=== PATIENT | female | born 1985 | race Caucasian/White ===

== ENCOUNTER 2016-09-29 12:01 | Emergency (ER) | payer OTHER ==
[~2016-09-29] VITALS: Wt 52.7 kg
[~2016-09-29 12:01] MED LIST: ACET1TAB40 PO; DOCU-144 PO; EPIN0.3P4 INJ; ESTR5VIA IM; IBUP-1542 PO; OXYC-279 PO; POLY17PO6 PO; PRED20TA PO
[2016-09-29] MEDS ORDERED: IBUPROFEN 800 MG TAB PO ONE (15:00)
[2016-09-29] MEDS ORDERED: NAPR-260 PO (15:24)
[2016-09-29 15:28] VITALS: BP 126/67; PULSE 78; RESP 21; TEMP 98.2
--- NOTE | 2016-09-29 15:29 | ERD ---
ER Documentation Chief Complaint Date/Time DATE: 09/29/16 TIME: 15:25 Chief Complaint RIGHT ARM PAIN FROM SHOULDER TO ELBOW NO TRAUMA. HPI This is a 30-year-old female who presents to the emergency department today complaining of right shoulder, right elbow, right wrist pain for the past 2 days. Patient states she has been moving homes and has been doing heavy lifting. She has tried Tylenol. Denies any fevers or chills or previous trauma. ROS All systems reviewed and are negative except as per history of present illness. Medications Home Meds Active Scripts Naproxen* (Naprosyn*) 500 Mg Tablet, 500 MG PO BID Y for PAIN AND/OR INFLAMMATION, #30 TAB Prov:ALEISHA RIVERO PA-C 09/29/16 Docusate Sodium* (Colace*) 100 Mg Capsule, 100 MG PO TID, #30 CAP Prov:MARTITA TAN PA-C 04/28/16 Polyethylene Glycol* (Miralax*) 17 Gm Powd.pack, 17 GM PO DAILY, #7 Prov:MARTITA TAN PA-C 04/28/16 Oxycodone HCl/Acetaminophen (Percocet 5-325 mg Tablet) 1 Each Tablet, 1 EACH PO QHS, #7 TAB Prov:MARTITA TAN PA-C 04/28/16 Ibuprofen* (Ibuprofen*) 600 Mg Tablet, 600 MG PO Q6H Y for PAIN, #30 TAB Prov:JOYCE SHEFFIELD PA-C 02/20/16 Prednisone* (Prednisone*) 20 Mg Tab, 60 MG PO DAILY for 4 Days, TAB Prov:PIO CHEN MD 02/08/16 Epinephrine (Epipen 2-Joshua) 0.3 Mg/0.3 Ml Pen.injctr, 1 EA INJ ONCE Y for ALLERGIC REACTION, #1 EA Prov:PIO CHEN MD 02/08/16 Acetaminophen-Codeine* (Acetaminophen-Cod #3*) 300-30 Mg Tab, 1 TAB PO Q4H Y for PAIN LEVEL 6-10, #15 TAB Prov:MARY JO FERNANDO 02/16/15 Ibuprofen* (Ibuprofen*) 600 Mg Tablet, 600 MG PO Q6 for PAIN LEVEL 1-5, #15 TAB Prov:MARY JO FERNANDO 02/16/15 Reported Medications Estradiol Cypionate* (Depo-Estradiol*) 5 Mg/Ml Vial, 5 MG IM, VIAL 07/08/14 Allergies Allergies: Coded Allergies: No Known Allergy (Unverified , 04/25/16) PMhx/Soc History of Surgery: Yes ( x2) Anesthesia Reaction: No Hx Neurological Disorder: No Hx Respiratory Disorders: No Hx Cardiac Disorders: No Hx Psychiatric Problems: No Hx Miscellaneous Medical Probl: No Hx Alcohol Use: No Hx Substance Use: No Hx Tobacco Use: No Smoking Status: Never smoker Physical Exam Vitals Vital Signs Date Time Temp Pulse Resp B/P Pulse Ox O2 Delivery O2 Flow Rate FiO2 09/29/16 12:07 98.8 92 21 120/74 99 Physical Exam Const: No acute distress Head: Atraumatic Eyes: Normal Conjunctiva ENT: Normal External Ears, Nose and Mouth. Neck: Full range of motion..~ No meningismus. Resp: Clear to auscultation bilaterally Cardio: Regular rate and rhythm, no murmurs Skin: No petechiae or rashes Back: No midline or flank tenderness MSK: Right shoulder, right elbow, right wrist with no obvious deformity. Full active range of motion at all joints.. Wrist with tenderness to palpation over volar aspect. Elbow with tenderness to palpation over medial epicondyle. Pulses 2+. Distal neurovascularly intact. Neur: Awake and alert Psych: Normal Mood and Affect Results 24 hrs Current Medications Medications (Trade) Dose Ordered Sig/Black Route PRN Reason Start Time Stop Time Status Last Admin Dose Admin Ibuprofen (Motrin) 800 mg ONCE ONCE PO 09/29/16 15:00 09/29/16 15:01 DC 09/29/16 14:39 Procedures/MDM This is a 30-year-old female who presents the emergency department today complaining of right shoulder right wrist and right elbow pain after doing heavy lifting for the past couple of days while moving her house. Patient has full active range of motion. There is no effusion. I have low suspicion for acute fracture dislocation. I do not feel the patient requires imaging at this time. Patient was driving herself here to the emergency department was given Motrin for pain. I will give her a prescription for Naprosyn for home. Patient is afebrile and otherwise well-appearing and I have low suspicion for septic joint or gout. Low suspicion for compartment syndrome. Patient was given a Velcro wrist splint to wear for comfort. I have instructed her to apply ice to painful areas. At this time the patient is stable for discharge and outpatient management. Patient should follow up with their PCP in the next 1-2 days. They may return to the emergency department sooner for any persistent or worsening of symptoms. Patient understood and agreed with the plan. Departure Diagnosis: Primary Impression: Pain of right arm Condition: Fair Patient Instructions: Muscle Strain, Extremity, Wrist Sprain Referrals: [facility] YOU HAVE RECEIVED A MEDICAL SCREENING EXAM AND THE RESULTS INDICATE THAT YOU DO NOT HAVE A CONDITION THAT REQUIRES URGENT TREATMENT IN THE EMERGENCY DEPARTMENT. FURTHER EVALUATION AND TREATMENT OF YOUR CONDITION CAN WAIT UNTIL YOU ARE SEEN IN YOUR DOCTORS OFFICE WITHIN THE NEXT 1-2 DAYS. IT IS YOUR RESPONSIBILITY TO MAKE AN APPOINTMENT FOR FOLOW-UP CARE. IF YOU HAVE A PRIMARY DOCTOR --you should call your primary doctor and schedule an appointment IF YOU DO NOT HAVE A PRIMARY DOCTOR YOU CAN CALL OUR PHYSICIAN REFERRAL HOTLINE AT IF YOU CAN NOT AFFORD TO SEE A PHYSICIAN YOU CAN CHOSE FROM THE FOLLOWING [facility] [address] [facility]. [facility] [address] [facility] [employer] [facility] [facility] [address] [facility]. [facility] [address] [facility] [facility] [address] [facility]. [facility]. [address] Additional Instructions: Call your primary care doctor TOMORROW for an appointment during the next 1-2 days.See the doctor sooner or return here if your condition worsens before your appointment time. Take Naprosyn or Tylenol or Motrin for pain Use a wrist splint for comfort Apply ice to painful areas Do not do any heavy lifting ALEISHA RIVERO PA-C Sep 29, 2016 15:29
== END 2016-09-29 15:29 | disposition home or self-care (01) ==
LOC: FTE 12:01
DX: S49.91XA Unspecified injury of right shoulder and upper arm, initial encounter (principal); X50.9XXA Other and unspecified overexertion or strenuous movements or postures, initial encounter; Y92.9 Unspecified place or not applicable
CPT/HCPCS: 29125; Z7502; Z7610

== ENCOUNTER 2016-11-13 14:35 | Emergency (ER) | payer OTHER ==
[~2016-11-13] VITALS: Ht 152.4 cm; Wt 56.0 kg
[~2016-11-13 14:35] MED LIST changes: +NAPR-260 PO
[2016-11-13 14:38] VITALS: Ht 152.4 cm; Wt 56.0 kg
[2016-11-13 15:41] LABS: URINE BLOOD (Dip) POC Negative (NEGATIVE)
[2016-11-13 15:45] LABS: ADD SCAN DIFF NO
--- NOTE | 2016-11-13 15:47 | RADRPT ---
PROCEDURE: US OB. CLINICAL INDICATION: pelvic pain TECHNIQUE: Transabdominal views of the pelvis are available for review. COMPARISON: No prior studies are available for comparison. FINDINGS: There is a single intrauterine gestation with the crown-rump length measuring 0.3 cm and the gestati onal sac measures 1.3 cm, corresponding to a gestational age of 6 weeks and 0 days. There is a yolk sac visualized. The heart rate is noted at 114 bpm. The ovaries are normal in size and echogenicity. Normal Doppler flow is identified in both ovaries. The right ovary measures 3.0 x 0.9 x 1.9 cm. The left ovary measures 4.0 x 2.6 x 3.3 cm. There is a 1.9 cm simple cyst in the left ovary. There is no free fluid. RPTAT: AA IMPRESSION: Single live intrauterine with an estimated gestational age of 6 weeks and 0 days, based on ultrasound measurements. MESFIN based on ultrasound measurements is 07/09/17. bradycardia may be due to the early gestation. Follow-up is needed. .Dago Castellanos MD, MD Date Time Electronically viewed and signed by .Dago Castellanos MD, MD on 11/13/2016 15:47 .S/
[2016-11-13 15:55] LABS: ADD UMIC NO
[2016-11-13 15:56] LABS: URINE BILIRUBIN (Dip) NEGATIVE (NEGATIVE); URINE BLOOD (Dip) NEGATIVE (NEGATIVE); URINE COLOR LT. YELLOW (YELLOW); URINE GLUCOSE (Dip) NEGATIVE (NEGATIVE); URINE KETONES (Dip) NEGATIVE (NEGATIVE); URINE LEUKOCYTE ESTERASE (Dip) NEGATIVE (NEGATIVE); URINE NITRITE (Dip) NEGATIVE (NEGATIVE); URINE TOTAL PROTEIN (Dip) NEGATIVE (NEGATIVE); URINE UROBILINOGEN (Dip) 0.2 E.U./dL (0.1-1.0)
[2016-11-13 15:58] LABS: BASOPHILS % 0.4 % (0.0-2.0); EOSINOPHILS # 0.2 10^3/ul (0.0-0.5); EOSINOPHILS % 1.9 % (0.0-7.0); HEMATOCRIT 39.3 % (37.0-47.0); HEMOGLOBIN 12.8 g/dl (12.0-16.0); LYMPHOCYTES # 2.2 10^3/ul (0.8-2.9); LYMPHOCYTES % 20.4 % (15.0-51.0); MEAN CORPUSCULAR HEMOGLOBIN 29.8 pg (29.0-33.0); MEAN CORPUSCULAR HGB CONC 32.6 g/dl (32.0-37.0); MEAN CORPUSCULAR VOLUME 91.4 fl (82.0-101.0); MEAN PLATELET VOLUME 9.9 fl (7.4-10.4); MONOCYTE # 0.8 10^3/ul (0.3-0.9); MONOCYTES % 7.8 % (0.0-11.0); NEUTROPHIL # 7.5 10^3/ul (1.6-7.5); NEUTROPHILS % 69.2 % (39.0-77.0); PLATELET COUNT 332 10^3/UL (140-415); RED CELL DISTRIBUTION WIDTH 12.9 % (11.5-14.5); WHITE BLOOD COUNT 10.8 10^3/ul (4.8-10.8)
[2016-11-13] MEDS ORDERED: ACETAMINOPHEN 325 MG TAB PO ONE (16:30)
[2016-11-13] MEDS ORDERED: ACET500C5 PO (17:02)
[2016-11-13] MEDS ORDERED: METO10TA92 PO (17:02)
--- NOTE | 2016-11-13 17:06 | ERD ---
ER Documentation Chief Complaint Date/Time DATE: 11/13/16 TIME: 17:04 Chief Complaint 5 WEEKS WITH ABD CRAMPING HPI This 22-year-old female is approximately 5 weeks by dates complaining of some lower abdominal cramping. She has bleeding, dysuria, fevers. She has had some vomiting since early , nonbilious nonbloody. ROS All systems reviewed and are negative except as per history of present illness. Medications Home Meds Active Scripts Acetaminophen* (Tylophen*) 500 Mg Capsule, 1 CAP PO Q6H Y for PAIN AND OR ELEVATED TEMP, #15 CAP Prov:JOCELYN JEFFRIES MD 11/13/16 Metoclopramide* (Reglan*) 10 Mg Tablet, 10 MG PO Q6 Y for NAUSEA AND/OR VOMITING , #15 TAB Prov:JOCELYN JEFFRIES MD 11/13/16 Naproxen* (Naprosyn*) 500 Mg Tablet, 500 MG PO BID Y for PAIN AND/OR INFLAMMATION, #30 TAB Prov:ALEISHA RIVERO PA-C 09/29/16 Docusate Sodium* (Colace*) 100 Mg Capsule, 100 MG PO TID, #30 CAP Prov:MARTITA TAN PA-C 04/28/16 Polyethylene Glycol* (Miralax*) 17 Gm Powd.pack, 17 GM PO DAILY, #7 Prov:MARTITA TAN PA-C 04/28/16 Oxycodone HCl/Acetaminophen (Percocet 5-325 mg Tablet) 1 Each Tablet, 1 EACH PO QHS, #7 TAB Prov:MARTITA TAN PA-C 04/28/16 Ibuprofen* (Ibuprofen*) 600 Mg Tablet, 600 MG PO Q6H Y for PAIN, #30 TAB Prov:JOYCE SHEFFIELD PA-C 02/20/16 Prednisone* (Prednisone*) 20 Mg Tab, 60 MG PO DAILY for 4 Days, TAB Prov:PIO CHEN MD 02/08/16 Epinephrine (Epipen 2-Joshua) 0.3 Mg/0.3 Ml Pen.injctr, 1 EA INJ ONCE Y for ALLERGIC REACTION, #1 EA Prov:PIO CHEN MD 02/08/16 Acetaminophen-Codeine* (Acetaminophen-Cod #3*) 300-30 Mg Tab, 1 TAB PO Q4H Y for PAIN LEVEL 6-10, #15 TAB Prov:MARY JO FERNANDO 02/16/15 Ibuprofen* (Ibuprofen*) 600 Mg Tablet, 600 MG PO Q6 for PAIN LEVEL 1-5, #15 TAB Prov:BELIA FERNANDOA 02/16/15 Reported Medications Estradiol Cypionate* (Depo-Estradiol*) 5 Mg/Ml Vial, 5 MG IM, VIAL 07/08/14 Allergies Allergies: Coded Allergies: No Known Allergy (Unverified , 04/25/16) PMhx/Soc History of Surgery: Yes ( x2) Anesthesia Reaction: No Hx Neurological Disorder: No Hx Respiratory Disorders: No Hx Cardiac Disorders: No Hx Psychiatric Problems: No Hx Miscellaneous Medical Probl: No (para 6, 3, misscarrage 1, abortionx1) Hx Alcohol Use: No Hx Substance Use: No Hx Tobacco Use: No Smoking Status: Never smoker Physical Exam Vitals Vital Signs Date Time Temp Pulse Resp B/P Pulse Ox O2 Delivery O2 Flow Rate FiO2 11/13/16 14:38 98.1 65 20 121/65 99 Physical Exam Const: [] Alert, not ill-appearing. Head: Atraumatic Eyes: Normal Conjunctiva ENT: Normal External Ears, Nose and Mouth. Neck: Full range of motion..~ No meningismus. Resp: Clear to auscultation bilaterally Cardio: Regular rate and rhythm, no murmurs Abd: Soft, minimal suprapubic tenderness without tenderness at McBurney's point no rebound or masses. R, non distended. Normal bowel sounds Skin: No petechiae or rashes Back: No midline or flank tenderness Ext: No cyanosis, or edema Neur: Awake and alert Psych: Normal Mood and Affect Result Diagram: 11/13/16 1530 Results 24 hrs Laboratory Tests Test 11/13/16 15:30 11/13/16 15:41 White Blood Count 10.810^3/ul Red Blood Count 4.3010^6/ul Hemoglobin 12.8g/dl Hematocrit 39.3% Mean Corpuscular Volume 91.4fl Mean Corpuscular Hemoglobin 29.8pg Mean Corpuscular Hemoglobin Concent 32.6g/dl Red Cell Distribution Width 12.9% Platelet Count 04595^3/UL Mean Platelet Volume 9.9fl Neutrophils % 69.2% Lymphocytes % 20.4% Monocytes % 7.8% Eosinophils % 1.9% Basophils % 0.4% Nucleated Red Blood Cells % 0.0/100WBC Neutrophils # 7.510^3/ul Lymphocytes # 2.210^3/ul Monocytes # 0.810^3/ul Eosinophils # 0.210^3/ul Basophils # 0.010^3/ul Nucleated Red Blood Cells # 0.010^3/ul Urine Color LT. YELLOW Urine Clarity CLEAR Urine pH 6.0 Urine Specific [facility] 1.010 Urine Ketones NEGATIVE Urine Nitrite NEGATIVE Urine Bilirubin NEGATIVE Urine Urobilinogen 0.2 E.U./dL Urine Leukocyte Esterase NEGATIVE Urine Hemoglobin NEGATIVE Urine Glucose NEGATIVE% Urine Total Protein NEGATIVE Beta HCG, Quantitative 30795.0mIU/ml Bedside Urine pH (LAB) 6.0 Bedside Urine Protein (LAB) Negative Bedside Urine Glucose (UA) Negative Bedside Urine Ketones (LAB) Negative Bedside Urine Blood Negative Bedside Urine Nitrite (LAB) Negative Bedside Urine Leukocyte Esterase (L Negative Current Medications Medications (Trade) Dose Ordered Sig/Black Route PRN Reason Start Time Stop Time Status Last Admin Dose Admin Acetaminophen (Tylenol Tab) 650 mg ONCE ONCE PO 11/13/16 16:30 11/13/16 16:31 DC 11/13/16 16:31 Procedures/MDM Urine is negative for leukocytes, nitrites, glucose, blood. HCG is 17,600. Patient is Rh+. Pelvic ultrasound shows a normal-appearing intrauterine approximately 6 weeks. Patient was given Tylenol 500 mg. Patient presents with lower abdominal cramping of uncertain etiology of early . Signs and symptoms not currently consistent with appendicitis, acute abdomen, ovarian torsion, ectopic or PID. She will discharged home instructions for clear fluids, Tylenol for pain and instructed to follow- up with OB as scheduled this week. She does return for bleeding, pain, fevers, new worsening symptoms with primary doctor as directed. Departure Diagnosis: Primary Impression: Abdominal pain affecting Condition: Stable Patient Instructions: Abdominal Pain, Early Additional Instructions: All examinations normal today. Drink plenty of fluids and take Tylenol for pain. Recheck for bleeding, fevers, new worsening symptoms. JOCELYN JEFFRIES MD Nov 13, 2016 17:06
== END 2016-11-13 17:32 | disposition home or self-care (01) ==
LOC: FTE 14:35
DX: O26.891 Other specified pregnancy related conditions, first trimester (principal); R10.9 Unspecified abdominal pain; R10.2 Pelvic and perineal pain
CPT/HCPCS: 76801; 81003; 84702; 85025; 86900; 86901; Z7502; Z7610

== ENCOUNTER 2017-01-25 10:44 | Emergency (ER) | payer OTHER ==
[~2017-01-25] VITALS: Ht 154.9 cm; Wt 55.0 kg
[~2017-01-25 10:44] MED LIST changes: +ACET500C5 PO; +METO10TA92 PO
[2017-01-25 10:45] VITALS: Ht 154.9 cm; Wt 55.0 kg
[2017-01-25 11:55] LABS: URINE BLOOD (Dip) POC Negative (NEGATIVE)
--- NOTE | 2017-01-25 12:27 | RADRPT ---
PROCEDURE: US OB. CLINICAL INDICATION: . Pelvic and abdominal pain. TECHNIQUE: Multiple sonographic images of the uterus were obtained. The images were revi ewed on a PACS workstation. COMPARISON: No prior studies are available for comparison. FINDINGS: There is a single live intrauterine gestation. heart rate is 144 beats per minute. Measurements were made in order to determine age. The results are as follows: BPD = 3.47 cm. HC = 12.86 cm. AC = 10.57 cm. FL = 2.14 cm. Estimated weight is 158 +/- 24 grams. LMP growth percentile is 54 %. Menstrual age by ultrasound dates is 16 weeks 4 days. The estimated date of delivery is 07/08/2017. Position is breech/variable and placenta is posterior grade 1. There is no evidence for an abruption or placenta previa. IMPRESSION: 1. Single live intrauterine gestation of 16 weeks 4 days menstrual age by ultrasound dates. 2. The estimated date of delivery is 07/08/2017. RPTAT: QQ .Riky Phipps MD, Date Time Electronically viewed and signed by .Riky Phipps MD, on 01/25/2017 12:27 .R/
--- NOTE | 2017-01-25 12:55 | ERD ---
ER Documentation Chief Complaint Date/Time DATE: 01/25/17 TIME: 12:53 Chief Complaint 16 weeks with ap, no bleeding HPI This 31-year-old female presents with generalized lower abdominal pain which is intermittent. She is approximately 16 weeks by dates. She denies any upper abdominal pain, fevers. She has had some intermittent vomiting but since the early . She has no current bilious or bloody vomiting. She denies urinary complaints or vaginal bleeding ROS All systems reviewed and are negative except as per history of present illness. Medications Home Meds Active Scripts Acetaminophen* (Tylophen*) 500 Mg Capsule, 1 CAP PO Q6H Y for PAIN AND OR ELEVATED TEMP, #15 CAP Prov:JOCELYN JEFFRIES MD 11/13/16 Metoclopramide* (Reglan*) 10 Mg Tablet, 10 MG PO Q6 Y for NAUSEA AND/OR VOMITING , #15 TAB Prov:JOCELYN JEFFRIES MD 11/13/16 Naproxen* (Naprosyn*) 500 Mg Tablet, 500 MG PO BID Y for PAIN AND/OR INFLAMMATION, #30 TAB Prov:ALEISHA RIVERO PA-C 09/29/16 Docusate Sodium* (Colace*) 100 Mg Capsule, 100 MG PO TID, #30 CAP Prov:MARTITA TAN PA-C 04/28/16 Polyethylene Glycol* (Miralax*) 17 Gm Powd.pack, 17 GM PO DAILY, #7 Prov:MARTITA TAN PA-C 04/28/16 Oxycodone HCl/Acetaminophen (Percocet 5-325 mg Tablet) 1 Each Tablet, 1 EACH PO QHS, #7 TAB Prov:MARTITA TAN PA-C 04/28/16 Ibuprofen* (Ibuprofen*) 600 Mg Tablet, 600 MG PO Q6H Y for PAIN, #30 TAB Prov:JOYCE SHEFFIELD PA-C 02/20/16 Prednisone* (Prednisone*) 20 Mg Tab, 60 MG PO DAILY for 4 Days, TAB Prov:PIO CHEN MD 02/08/16 Epinephrine (Epipen 2-Joshua) 0.3 Mg/0.3 Ml Pen.injctr, 1 EA INJ ONCE Y for ALLERGIC REACTION, #1 EA Prov:PIO CHEN MD 02/08/16 Acetaminophen-Codeine* (Acetaminophen-Cod #3*) 300-30 Mg Tab, 1 TAB PO Q4H Y for PAIN LEVEL 6-10, #15 TAB Prov:MARY JO FERNANDO 02/16/15 Ibuprofen* (Ibuprofen*) 600 Mg Tablet, 600 MG PO Q6 for PAIN LEVEL 1-5, #15 TAB Prov:MARY JO FERNANDO 02/16/15 Reported Medications Estradiol Cypionate* (Depo-Estradiol*) 5 Mg/Ml Vial, 5 MG IM, VIAL 07/08/14 Allergies Allergies: Coded Allergies: No Known Allergy (Unverified , 04/25/16) PMhx/Soc Medical and Surgical Hx: pt denies Medical Hx History of Surgery: Yes ( x2) Anesthesia Reaction: No Hx Neurological Disorder: No Hx Respiratory Disorders: No Hx Cardiac Disorders: No Hx Psychiatric Problems: No Hx Miscellaneous Medical Probl: No (para 6, 3, misscarrage 1, abortionx1) Hx Alcohol Use: No Hx Substance Use: No Hx Tobacco Use: No Smoking Status: Never smoker Physical Exam Vitals Vital Signs Date Time Temp Pulse Resp B/P Pulse Ox O2 Delivery O2 Flow Rate FiO2 01/25/17 10:45 98.1 99 18 116/60 99 Physical Exam Const: [] Alert, fee-see-fgoujbwne per Head: Atraumatic Eyes: Normal Conjunctiva ENT: Normal External Ears, Nose and Mouth. Neck: Full range of motion..~ No meningismus. Resp: Clear to auscultation bilaterally Cardio: Regular rate and rhythm, no murmurs Abd: Soft, non tender, non distended. Normal bowel sounds. Mass consistent with a second trimester . No tenderness at McBurney's point no Knapp sign. Skin: No petechiae or rashes Back: No midline or flank tenderness Ext: No cyanosis, or edema Neur: Awake and alert Psych: Normal Mood and Affect Results 24 hrs Laboratory Tests Test 01/25/17 12:00 Bedside Urine pH (LAB) 6.5 Bedside Urine Protein (LAB) Negative Bedside Urine Glucose (UA) Negative Bedside Urine Ketones (LAB) Negative Bedside Urine Blood Negative Bedside Urine Nitrite (LAB) Negative Bedside Urine Leukocyte Esterase (L Negative Procedures/MDM Urine is negative for infection, glucose, blood or nitrites. OB ultrasound shows normal-appearing 16 week without acute findings. Patient presents with unspecified mild lower abdominal pain of second trimester . There is no signs or symptoms of ectopic , bleeding, acute abdomen, appendicitis, hepatobiliary disease additional causes of presenting complaints. She will be discharged home with further observation and OB follow- up. She is advised to drink plenty of fluids, take Tylenol for pain and recheck for bleeding, fevers, new worsening symptoms as directed after instructions were Departure Diagnosis: Primary Impression: Abdominal pain Abdominal location: unspecified location Qualified Code: R10.9 - Abdominal pain, unspecified location Condition: Stable Patient Instructions: Abdominal Pain, Early Additional Instructions: Examinations normal today. Drink plenty of fluids, take Tylenol for pain and follow-up with OB. Return otherwise for bleeding, fevers, new worsening symptoms. JOCELYN JEFFRIES MD Jan 25, 2017 12:55
[2017-01-25 13:06] VITALS: BP 97/62; PULSE 82; RESP 16; TEMP 98.3
== END 2017-01-25 13:07 | disposition home or self-care (01) ==
LOC: FTE 10:44
DX: O26.892 Other specified pregnancy related conditions, second trimester (principal); R10.84 Generalized abdominal pain; Z3A.16 16 weeks gestation of pregnancy
CPT/HCPCS: 76805; 81003; Z7502

== ENCOUNTER 2017-02-23 10:53 | Outpatient (CLI) | payer OTHER ==
[~2017-02-23] VITALS: Ht 154.9 cm; Wt 56.4 kg
[2017-02-23 11:23] VITALS: BP 98/62; PULSE 88; RESP 20
[2017-02-23 11:29] VITALS: Ht 154.9 cm; Wt 56.4 kg
[2017-02-23 12:14] LABS: ADD UMIC NO; UR ASCORBIC ACID 20 mg/dL (NEGATIVE); UR BACTERIA FEW /HPF (NONE SEEN); UR BILIRUBIN (Dip) NEGATIVE (NEGATIVE); UR BLOOD (Dip) NEGATIVE (NEGATIVE); UR CLARITY SLIGHTLY CLOUDY (CLEAR); UR COLOR YELLOW (YELLOW); UR GLUCOSE (Dip) NEGATIVE (NEGATIVE); UR KETONES (Dip) NEGATIVE (NEGATIVE); UR LEUKOCYTE ESTERASE (Dip) NEGATIVE Leu/ul (NEGATIVE); UR MUCUS FEW /HPF (NONE SEEN); UR NITRITE (Dip) NEGATIVE (NEGATIVE); UR RBC 0 /HPF (0-5); UR SPECIFIC GRAVITY (Dip) 1.019 (1.003-1.030); UR TOTAL PROTEIN (Dip) NEGATIVE (NEGATIVE); UR UROBILINOGEN (Dip) NEGATIVE (NEGATIVE)
[2017-02-23 13:09] LABS: BASOPHIL # 0.1 10^3/ul (0.0-0.1); BASOPHILS % 0.4 % (0.0-2.0); EOSINOPHILS # 0.6 10^3/ul (0.0-0.5); HEMATOCRIT 35.2 % (37.0-47.0); HEMOGLOBIN 12.3 g/dl (12.0-16.0); LYMPHOCYTES # 2.1 10^3/ul (0.8-2.9); LYMPHOCYTES % 15.3 % (15.0-51.0); MEAN CORPUSCULAR HEMOGLOBIN 32.5 pg (29.0-33.0); MEAN CORPUSCULAR HGB CONC 34.9 g/dl (32.0-37.0); MEAN CORPUSCULAR VOLUME 92.9 fl (82.0-101.0); MEAN PLATELET VOLUME 9.7 fl (7.4-10.4); MONOCYTE # 1.2 10^3/ul (0.3-0.9); MONOCYTES % 8.9 % (0.0-11.0); NEUTROPHIL # 9.8 10^3/ul (1.6-7.5); NEUTROPHILS % 70.5 % (39.0-77.0); PLATELET COUNT 281 10^3/UL (140-415); RED BLOOD COUNT 3.79 10^6/ul (4.20-5.40); RED CELL DISTRIBUTION WIDTH 13.9 % (11.5-14.5); WHITE BLOOD COUNT 13.9 10^3/ul (4.8-10.8)
[2017-02-23 13:34] LABS: ALBUMIN/GLOBULIN RATIO 1.3
[2017-02-23 13:36] LABS: ALBUMIN 3.4 g/dl (3.3-4.9); BILIRUBIN,INDIRECT 0.2 mg/dl (0-1.1); BILIRUBIN,TOTAL 0.2 mg/dl (0.2-1.3); CALCIUM 9.5 mg/dl (8.4-10.2); CREATININE 0.47 mg/dl (0.44-1.00); POTASSIUM 4.1 mmol/L (3.5-5.1)
--- NOTE | 2017-02-23 14:11 | RADRPT ---
PROCEDURE: Limited obstetric ultrasound CLINICAL INDICATION: Pain TECHNIQUE: Multiple transverse and longitudinal grayscale images of the pelvis were obtained son sabdominally and transvaginally.. COMPARISON: 01/25/17 FINDINGS: The cervix is closed with a length of 3.1 cm. There is a single viable intrauterine gestation. Cardiac activity is present with 148 beats per min salamatof. There is a vertex presentation. The placenta is posterior. There is no evidence for an abruption or placenta previa. RPTAT: AA IMPRESSION: Cervix length measures 3.1 cm. .Dago Castellanos MD, Date Time Electronically viewed and signed by .Dago Castellanos MD, on 02/23/2017 14:11 .S/
--- NOTE | 2017-02-23 14:12 | RADRPT ---
PROCEDURE: Retroperitoneal US. CLINICAL INDICATION: Flank pain TECHNIQUE: Multiple sonographic images of the kidneys and retroperitoneum were obtained. The imag es were reviewed on a PACS workstation. COMPARISON: No prior studies are available for comparison. FINDINGS: The kidneys are normal in size, contour, cortical thickness and cortical echogenicity. The right kidney measures 10.7 cm. The left kidney measures 10.6 cm. No kidney stones are visualized. There is mild right-sided hydronephrosis. The urinary bladder is normal. RPTAT: AA IMPRESSION: Mild right-sided hydronephrosis. .Dago Castellanos MD, MD Date Time Electronically viewed and signed by .Dago Castellanos MD, on 02/23/2017 14:12 .S/
--- NOTE | 2017-02-23 15:19 | QN ---
Documentation Comment ip 20 weeks co right sided back pain no NVFC vss exam wnl.- no rebound no gauridng labs US wnl a/p iup 20 weeks false labor dc home HAY ADORNO MD Feb 23, 2017 15:19
--- NOTE | 2017-02-23 16:20 | TRIAGE ---
OB Triage Datetime Report Generated by CPN: 02/23/2017 16:19 Datetime: 02/23/2017 15:05 Stage of : OB Triage Datetime: 02/23/2017 13:40 Stage of : OB Triage Datetime: 02/23/2017 12:50 Stage of : OB Triage Datetime: 02/23/2017 11:40 Assessment Type: Triage Maternal Assessment Level of Consciousness: Fully Conscious DTR's/Clonus: DTRs 2+; No Clonus Headache: Denies Blurred Vision: No Respiratory Effort: Unlabored; Regular Rhythm; Equal Expansion Breath Sounds, Left: Clear and Equal Breath Sounds, Right: Clear and Equal Nausea/Vomiting: Denies RUQ Epigastric Pain: Denies Lower Extremities Edema: None Upper Extremities Edema: None Facial Edema: None Fall Risk Assessment History of Falling: (0) No Secondary Diagnosis: (0) No Ambulatory Aid: (0) Bedrest/Nurse Assist IV Therapy: (0) No Gait: (0) Normal/Bedrest/Immobile Mental Status: (0) Oriented to Own Ability Fall Score: 0 Fall Risk Score Definition: No Risk: No action required Datetime: 02/23/2017 11:32 Time of Arrival: 02/23/2017 10:48 EGA: 20.3 Arrived By: Wheelchair Arrived From: Home Chief Complaint: RIGHT FLANK PAIN X 2 WEEKS 02/09 HEADACHES DAILY X 3 WEEKS 02/09 PT HAD HEMORROID SURGERY ALSO SOME MILD BLEEDING 2015 Movement: Present Rupture of Membranes: Denies Vaginal Bleeding: None Vaginal Discharge: Denies Recent Sexual Intercouse: Denies Abdominal Trauma: Not Applicable Initial Plan: FHT Datetime: 02/23/2017 11:15 Stage of : OB Triage Heart Rate Comments: FHT 150 Pain Assessment Pain Scale: 7 Pain Presence: Constant Pain Location: Head; Right Flank
== END 2017-02-23 15:15 | disposition home or self-care (01) ==
LOC: OBT 10:53 → L-D 10:54 → OBT 15:15
PROVIDERS: ATTEND Obstetrics & Gynecology
DX: O26.892 Other specified pregnancy related conditions, second trimester (principal); Z3A.20 20 weeks gestation of pregnancy
CPT/HCPCS: 36415; 76775; 76817; 80053; 81001; 85025; Z7500; 81003; G0463

== ENCOUNTER 2017-06-17 10:45 | Outpatient (CLI) | END 2017-06-17 17:15 | disposition home or self-care (01) ==

== ENCOUNTER 2017-06-19 09:57 | Inpatient (IN) | payer OTHER ==
[2017-06-19] VITALS (7 sets, daily range): BP systolic 93–110; BP diastolic 53–70; PULSE 77–98; RESP 18; Ht 152.4 cm; Wt 67.5 kg
[~2017-06-19] VITALS: Ht 152.4 cm; Wt 67.5 kg
[~2017-06-19 09:57] MED LIST changes: -ACET1TAB40 PO; -ACET500C5 PO; -DOCU-144 PO; +EPHEDrine SULFATE 50 MG/5 ML SYG ONE; -EPIN0.3P4 INJ; -ESTR5VIA IM; -IBUP-1542 PO; -METO10TA92 PO; -NAPR-260 PO; -OXYC-279 PO; +OXYTOCIN 30 UNITS/LR 500 ML BAG IV ONE; +PNV11TAB PO; -POLY17PO6 PO; -PRED20TA PO; +URSO300C21 PO
[2017-06-19] MEDS ORDERED: LACTATED RINGER'S 1,000 ML IV SCH (10:32)
[2017-06-19] MEDS ORDERED: MAGN500T PO (10:40)
[2017-06-19] MEDS ORDERED: LACTATED RINGER'S 1,000 ML IV ONE (11:00)
[2017-06-19] MEDS ORDERED: METHYLERGONOVINE 0.2 MG INJ IM PRN ×2 (11:00→18:00)
[2017-06-19] MEDS ORDERED: MISOPROSTOL 200 MCG TAB PR PRN ×2 (11:00→18:00)
[2017-06-19] MEDS ORDERED: OXYTOCIN 30 UNITS/LR 500 ML IV PRN ×2 (11:00→18:00)
[2017-06-19] MEDS ORDERED: CARBOPROST 250 MCG INJ IM PRN ×2 (11:00→18:00)
[2017-06-19 11:34] LABS: BASOPHIL # 0.1 10^3/ul (0.0-0.1); BASOPHILS % 0.5 % (0.0-2.0); EOSINOPHILS # 0.5 10^3/ul (0.0-0.5); EOSINOPHILS % 4.4 % (0.0-7.0); HEMATOCRIT 40.2 % (37.0-47.0); HEMOGLOBIN 13.5 g/dl (12.0-16.0); LYMPHOCYTES # 1.9 10^3/ul (0.8-2.9); LYMPHOCYTES % 15.8 % (15.0-51.0); MEAN CORPUSCULAR HEMOGLOBIN 31.8 pg (29.0-33.0); MEAN CORPUSCULAR HGB CONC 33.6 g/dl (32.0-37.0); MEAN CORPUSCULAR VOLUME 94.6 fl (82.0-101.0); MEAN PLATELET VOLUME 10.3 fl (7.4-10.4); MONOCYTE # 1.1 10^3/ul (0.3-0.9); MONOCYTES % 9.1 % (0.0-11.0); NEUTROPHIL # 8.2 10^3/ul (1.6-7.5); NEUTROPHILS % 68.9 % (39.0-77.0); PLATELET COUNT 307 10^3/UL (140-415); RED BLOOD COUNT 4.25 10^6/ul (4.20-5.40); RED CELL DISTRIBUTION WIDTH 13.8 % (11.5-14.5); WHITE BLOOD COUNT 11.9 10^3/ul (4.8-10.8)
[2017-06-19 12:17] LABS: PROTIME 13.2 Sec (12.2-14.2)
[2017-06-19 12:18] LABS: PARTIAL THROMBOPLASTIN TIME 26.5 Sec (25.0-35.0)
[2017-06-19] MEDS ORDERED: ONDANSETRON 4 MG INJ ONE ×2 (12:26→12:31)
[2017-06-19] MEDS ORDERED: CITRIC ACID/SODIUM CITRATE 15 ML CUP ONE (12:26)
[2017-06-19] MEDS ORDERED: CITRIC ACID/SODIUM CITRATE 15 ML CUP PO ONE (12:30)
[2017-06-19] MEDS ORDERED: ONDANSETRON 4 MG INJ IV ONE (12:30)
[2017-06-19] MEDS ORDERED: morphine SULFATE/PF (10 MG/10 ML) INJ ONE (12:31)
[2017-06-19] MEDS ORDERED: DEXAMETHASONE 4 MG/ML 1 ML INJ ONE (12:31)
[2017-06-19] MEDS ORDERED: PHENYLephrine (100 MCG/ML) 5ML SYG ONE ×4 (12:31→14:41)
[2017-06-19] MEDS ORDERED: KETOROLAC 30 MG INJ ONE (12:31)
[2017-06-19] MEDS ORDERED: OXYTOCIN 10 UNIT INJ ONE (12:31)
[2017-06-19] MEDS ORDERED: METOCLOPRAMIDE 10 MG INJ ONE (12:31)
--- NOTE | 2017-06-19 13:43 | HP ---
Date/Time of Note Date/Time of Note DATE: 06/19/17 TIME: 13:28 OB - History Hx of Present Free Text/Dictation 31 years old female T3 SAB 1 IAB 1 EDC July 10, 2017 admitted at 37 weeks gestation suspected cholestasis of with generalized body itching, with normal bile acid value, consulting perinatologist recommended delivery at 37 weeks, he is also requesting bilateral tubal ligation at the time of her section complication of the surgery including bowel bladder injury infection hemorrhage and hematoma has been explained to the patient also the failure rate of tubal ligation and increased risk of ectopic and future failure to conceive, she would like to proceed with the operation. Chief Complaint: at 37 weeks suspected cholestasis with generalized body itching Estimated Due Date: Jul 10, 2017 : 6 Para: 3 Spontaneous : 1 Therapeutic : 1 Care: Good Care Ultrasounds: Normal mid trimester US Medical Complications: Other (Suspected cholestasis of ) Past Family/Social History * Past Medical, Surgical, Family and Obstetric Histories reviewed from chart. Rubella: immune RPR/VDRL: Negative GBS Status: Negative OB Admission Exam Vital Signs Vital Signs Vital Signs Date Time Temp Pulse Resp B/P Pulse Ox O2 Delivery O2 Flow Rate FiO2 06/19/17 10:20 98.0 82 18 109/70 97 Room Air Physical Exam HEENT: WNL Heart: Rhythm Normal Lungs: Clear, Equal Abdomen: WNL Extremities: Normal Reflexes: Normal Membranes: Intact Heart Rate: 130's Decelerations: No Decelerations Varibility: Moderate Last 72 hours Lab Results CBC & BMP 06/19/17 10:30 OB Assessment/Plan Reason for admission: other ( at 37 weeks suspected cholestasis of perinatologist recommended delivery at this time) Plan: Section, Other (History of 2 previous section) Other plan: 31 years old history of 2 previous at 37 weeks suspected cholestasis of perinatologist recommended delivery ,patient has requested bilateral tubal ligation at the time of her section, failure rate of tubal increased risk of ectopic future failure to conceive has been completely explained to the patient and she would like to proceed with the repeat and bilateral tubal ligation JAMA SINGH MD Jun 19, 2017 13:40
[2017-06-19] MEDS: CEFAZOLIN 2 GM/50 ML (PMX) 50 ML IVPB SCH ×2 (13:44→14:02)
[2017-06-19] MEDS ORDERED: ALBUMIN HUMAN 5% 250 ML ONE (14:28)
[2017-06-19] MEDS ORDERED: HETASTARCH 6% NACL 500 ML ONE (14:42)
--- NOTE | 2017-06-19 14:47 | OPR ---
Operative Report Planned Procedure Free Text/Dictation 31 years old history of 2 previous 37 weeks gestation EDC July 10 admitted to the hospital with a diagnosis of suspected cholestasis of perinatologist recommended delivery patient also had signed consent for bilateral tubal ligation at the time of her section. Failure rate of tubal ligation increased risk of ectopic future failure to conceive overall has been explained to the patient and she would like to proceed with the operation Procedure date Jun 19, 2017 Procedure(s) Repeat bilateral tubal ligation Performed by see signature line Manager Integration DR Vicente ZAPIEN Anesthesiologist: DIANE WORLEY MD Pre-procedure diagnosis 37 weeks suspected cholestasis of history of 2 previous section with request for bilateral tubal ligation Anesthesia Type: spinal Post-Procedure Post-procedure diagnosis Same as above Findings Live Baby girl Apgars 8 and 9 nuchal cord 1 Estimated Blood Loss: 600 - 700 mls Specimen(s) none Grafts/Implant(s) none Complication(s) none Pt Condition post procedure: stable Procedure Description Under satisfactory spinal anesthesia patient prepped and draped and placed in supine position. Pfannenstiel incision was made. Incision carried through the subcutaneous tissue. Fascia incised to the length of incision. Rectus muscle divided in midline. Peritoneum exposed and entered to a vertical incision. Exploration of abdomen revealed [gravid uterus at term normal-appearing tubes and ovaries.] Bladder flap was developed. Transverse incision was made in the lower segment of the uterus. Amniotic sac ruptured, [clear amniotic fluid noted. ] Live baby girl was delivered from unengaged vertex.Naso oropharyngeal suction was performed. Baby handed to the team for immediate attention. Patient received 20 units of Pitocin. Placenta delivered manually intact. Uterine cavity cleaned with a wet sponge and drainage established. Uterus closed in 2 layers using Monocryl #1 in continuous fashion. Lateral tubal ligation performed by identifying the ampullar portion of the right fallopian tube grasped by a Troy a loop was made top of the loop three quarter of inch was excised suture material used #0 plain catgut was reinforced with the same suture material specimen submitted to the pathology same procedure performed for the opposite side, peritoneal cavity irrigated with warm saline. Sponge needle instrument reported to be correct. Abdominal peritoneum closed with 2-0 chromic catgut continuously. Fascia closed with #1 PDS in a continuous fashion. Subcutaneous tissue irrigated with warm saline and approximated with 2-0 chromic catgut skin closed with N sorb. Estimated blood loss 600 cc [ ]. Urine bag containing [200] mL of [clear] urine. Patient tolerated procedure well and transferred to recovery room in good condition. JAMA SINGH MD Jun 19, 2017 14:47
[2017-06-19 17:02] LABS: ALBUMIN 3.3 g/dl (3.3-4.9); ALBUMIN/GLOBULIN RATIO 1.03; BILIRUBIN,INDIRECT 0.3 mg/dl (0-1.1); BILIRUBIN,TOTAL 0.3 mg/dl (0.2-1.3); CALCIUM 10.1 mg/dl (8.4-10.2); CREATININE 0.46 mg/dl (0.44-1.00); POTASSIUM 3.7 mmol/L (3.5-5.1); TOTAL PROTEIN 6.5 g/dl (6.1-8.1)
[2017-06-19] MEDS ORDERED: HYDROCODONE/APAP (5/325) TAB PO PRN ×2 (17:30→18:00)
[2017-06-19] MEDS ORDERED: morphine 2 MG INJ IV PRN (17:30)
[2017-06-19] MEDS ORDERED: NALOXONE (0.4 MG/ML) INJ IV PRN (17:30)
[2017-06-19] MEDS ORDERED: NALBUPHINE HCL (10 MG/1 ML) INJ IV PRN (17:30)
[2017-06-19] MEDS ORDERED: morphine 4 MG/ML VIAL IV PRN (17:30)
[2017-06-19] MEDS ORDERED: ACETAMINOPHEN 500 MG TAB PO PRN (17:30)
[2017-06-19] MEDS ORDERED: DIPHENHYDRAMINE 50 MG INJ IV PRN (17:30)
[2017-06-19] MEDS ORDERED: HYDROmorphONE 0.5 MG/0.5 ML SYG IV PRN ×2 (17:30)
[2017-06-19] MEDS ORDERED: ONDANSETRON 4 MG INJ IV PRN (17:30)
[2017-06-19] MEDS ORDERED: OXYCODONE/ACETAMINOPHEN (5/325) TAB PO PRN ×2 (18:00)
[2017-06-19] MEDS ORDERED: CEFAZOLIN 1 GM/50 ML (PMX) 50 ML IVPB SCH (18:00)
[2017-06-19] MEDS ORDERED: LANOLIN 7 GM TUBE TOP PRN (18:00)
[2017-06-19] MEDS: OXYTOCIN 30 UNITS/LR 500 ML IV SCH ×2 (18:37→23:10)
[2017-06-19] MEDS: IBUPROFEN 600 MG TAB PO SCH (18:59)
[2017-06-19] MEDS: SENNA/DOCUSATE NA (8.6MG/50MG) TAB PO SCH (20:34)
[2017-06-19] MEDS: KETOROLAC 30 MG INJ IV PRN (20:52)
[2017-06-20] VITALS: BP 95/52; PULSE 80; RESP 18
[2017-06-20] MEDS: OXYTOCIN 30 UNITS/LR 500 ML IV SCH (03:46)
[2017-06-20 04:00] VITALS: BP 97/58; PULSE 86; RESP 18
[2017-06-20] MEDS ORDERED: LACTATED RINGER'S 1,000 ML IV SCH (07:30)
--- NOTE | 2017-06-20 07:52 | OPPN ---
Date/Time of Note Date/Time of Note DATE: 06/20/17 TIME: 07:52 Post-Anesthesia Notes Post-Anesthesia Note Last documented vital signs Vital Signs Date Time Temp Pulse Resp B/P Pulse Ox O2 Delivery O2 Flow Rate FiO2 06/20/17 04:00 98.8 86 18 97/58 Room Air 06/19/17 16:15 98 Activity: WNL Respiratory function: WNL Cardiovascular function: WNL Mental status: Baseline Pain reasonably controlled: Yes Hydration appropriate: Yes Nausea/Vomiting absent: Yes DIANE WORLEY MD Jun 20, 2017 07:52
[2017-06-20 08:00] VITALS: BP 101/59; PULSE 75; RESP 18
[2017-06-20] MEDS: KETOROLAC 30 MG INJ IV PRN (08:02)
[2017-06-20] MEDS: SENNA/DOCUSATE NA (8.6MG/50MG) TAB PO SCH ×2 (08:03→21:12)
[2017-06-20 09:24] LABS: ABNORMAL IP MESSAGE 1; BASOPHILS % 0.3 % (0.0-2.0); EOSINOPHILS # 0.3 10^3/ul (0.0-0.5); EOSINOPHILS % 1.6 % (0.0-7.0); HEMATOCRIT 33.5 % (37.0-47.0); HEMOGLOBIN 11.1 g/dl (12.0-16.0); LYMPHOCYTES # 2.4 10^3/ul (0.8-2.9); LYMPHOCYTES % 15.8 % (15.0-51.0); MEAN CORPUSCULAR HGB CONC 33.1 g/dl (32.0-37.0); MEAN CORPUSCULAR VOLUME 96.5 fl (82.0-101.0); MEAN PLATELET VOLUME 10.3 fl (7.4-10.4); MONOCYTE # 1.6 10^3/ul (0.3-0.9); MONOCYTES % 10.4 % (0.0-11.0); NEUTROPHIL # 10.8 10^3/ul (1.6-7.5); NEUTROPHILS % 71.1 % (39.0-77.0); PLATELET COUNT 264 10^3/UL (140-415); RED BLOOD COUNT 3.47 10^6/ul (4.20-5.40); RED CELL DISTRIBUTION WIDTH 14.1 % (11.5-14.5); WHITE BLOOD COUNT 15.2 10^3/ul (4.8-10.8)
--- NOTE | 2017-06-20 11:52 | PN ---
Date/Time of Note Date/Time of Note DATE: 06/20/17 TIME: 11:50 OB Subjective Subjective Subjective Post C Section day 1 Patient is doing well, Ambulatory She is afebrile Abdomen is soft , Fundus is firm Moderate amount of lochia Breasts are soft, Nipples are intact No calf tenderness. Incision is healing well. Laboratory Tests Test 06/20/17 08:57 White Blood Count 15.210^3/ul Red Blood Count 3.4710^6/ul Hemoglobin 11.1g/dl Hematocrit 33.5% Mean Corpuscular Volume 96.5fl Mean Corpuscular Hemoglobin 32.0pg Mean Corpuscular Hemoglobin Concent 33.1g/dl Red Cell Distribution Width 14.1% Platelet Count 91083^3/UL Mean Platelet Volume 10.3fl Neutrophils % 71.1% Lymphocytes % 15.8% Monocytes % 10.4% Eosinophils % 1.6% Basophils % 0.3% Nucleated Red Blood Cells % 0.0/100WBC Neutrophils # 10.810^3/ul Lymphocytes # 2.410^3/ul Monocytes # 1.610^3/ul Eosinophils # 0.310^3/ul Basophils # 0.010^3/ul Nucleated Red Blood Cells # 0.010^3/ul Current Medications Medications (Trade) Dose Ordered Sig/Black Route PRN Reason Start Time Stop Time Status Last Admin Dose Admin Lactated Ringer's 1,000 ml @ 125 mls/hr Q8H IV 06/19/17 10:32 06/19/17 17:36 DC 06/19/17 10:42 Cefazolin Sodium/ Dextrose 50 ml @ 100 mls/hr ONCE IVPB 06/19/17 11:00 06/19/17 17:36 DC 06/19/17 13:44 Oxytocin/Lactated Ringer's 500 ml @ 0 mls/hr ONCE PRN IV For Hemorrhage Management 06/19/17 11:00 06/19/17 17:36 DC Methylergonovine Maleate (Methergine) 0.2 mg ONCE PRN IM VAGINAL BLEEDING 06/19/17 11:00 06/19/17 17:36 DC Carboprost Tromethamine (Hemabate) 250 mcg ONCE PRN IM VAGINAL BLEEDING 06/19/17 11:00 06/19/17 17:36 DC Misoprostol 1000 mcg 1,000 mcg ONCE PRN RI VAGINAL BLEEDING 06/19/17 11:00 06/19/17 17:36 DC Lactated Ringer's (Lr) 1,000 ml @ 1,000 mls/hr Q1H ONCE IV 06/19/17 11:00 06/19/17 11:59 DC 06/19/17 12:19 Ondansetron HCl (Zofran Inj) 4 mg STK-MED ONCE .ROUTE 06/19/17 12:26 06/19/17 12:27 DC Citric Acid/ Sodium Citrate (Bicitra) 15 ml STK-MED ONCE .ROUTE 06/19/17 12:26 06/19/17 12:27 DC Ondansetron HCl (Zofran Inj) 4 mg pre-procedure ONCE IV 06/19/17 12:30 06/19/17 12:31 DC 06/19/17 12:32 Citric Acid/ Sodium Citrate (Bicitra) 30 ml PRE-OP ONCE PO 06/19/17 12:30 06/19/17 12:31 DC 06/19/17 12:32 Ondansetron HCl (Zofran Inj) 4 mg STK-MED ONCE .ROUTE 06/19/17 12:31 06/19/17 12:32 DC Phenylephrine HCl (Jarrod-Synephrine Inj Syg) 500 mcg STK-MED ONCE .ROUTE 06/19/17 12:31 06/19/17 12:32 DC Metoclopramide HCl (Reglan) 10 mg STK-MED ONCE .ROUTE 06/19/17 12:31 06/19/17 12:32 DC Oxytocin (Oxytocin) 10 units STK-MED ONCE .ROUTE 06/19/17 12:31 06/19/17 12:32 DC Morphine Sulfate (Duramorph) 10 mg STK-MED ONCE .ROUTE 06/19/17 12:31 06/19/17 12:32 DC Ketorolac Tromethamine (Toradol) 30 mg STK-MED ONCE .ROUTE 06/19/17 12:31 06/19/17 12:32 DC Dexamethasone (Decadron) 4 mg STK-MED ONCE .ROUTE 06/19/17 12:31 06/19/17 12:32 DC Phenylephrine HCl (Jarrod-Synephrine Inj Syg) 500 mcg STK-MED ONCE .ROUTE 06/19/17 14:01 06/19/17 14:02 DC Phenylephrine HCl 500 mcg 500 mcg STK-MED ONCE .ROUTE 06/19/17 14:18 06/19/17 14:19 DC Albumin Human 250 ml @ STK-MED ONCE .ROUTE 06/19/17 14:28 06/19/17 14:29 DC Phenylephrine HCl 500 mcg 500 mcg STK-MED ONCE .ROUTE 06/19/17 14:41 06/19/17 14:42 DC Hetastarch/Sodium Chloride (Hespan In Saline) 500 ml @ STK-MED ONCE .ROUTE 06/19/17 14:42 06/19/17 14:43 DC Hydromorphone HCl (Dilaudid) 0.2 mg Q2H PRN IV PAIN LEVEL 1-5 06/19/17 17:30 06/20/17 13:30 Hydromorphone HCl (Dilaudid) 0.4 mg Q2H PRN IV PAIN LEVEL 6-10 06/19/17 17:30 06/20/17 13:30 Morphine Sulfate (morphine) 2 mg Q2H PRN IV PAIN LEVEL 1-5 06/19/17 17:30 06/19/17 17:36 DC Morphine Sulfate (morphine) 4 mg Q2H PRN IV PAIN LEVEL 6-10 06/19/17 17:30 06/19/17 17:36 DC Ketorolac Tromethamine (Toradol) 30 mg Q6H PRN IV PAIN LEVEL 6-10 06/19/17 17:30 06/20/17 13:00 06/20/17 08:02 Acetaminophen (Tylenol Tab) 500 mg Q4H PRN PO PAIN LEVEL 1-3 06/19/17 17:30 06/19/17 17:36 DC Acetaminophen/ Hydrocodone Bitart (Wellington (5/325)) 1 tab Q4H PRN PO PAIN LEVEL 4-6 06/19/17 17:30 06/19/17 17:36 DC Diphenhydramine HCl (Benadryl) 25 mg Q4H PRN IV PRURITUS 06/19/17 17:30 06/19/17 17:36 DC Nalbuphine HCl (Nubain) 10 mg Q4H PRN IV PRURITUS 06/19/17 17:30 06/19/17 17:36 DC Ondansetron HCl (Zofran Inj) 4 mg Q6H PRN IV NAUSEA AND/OR VOMITING 06/19/17 17:30 06/20/17 13:30 Naloxone HCl (Narcan) 0.2 mg Q2M PRN IV FOR RESP RATE 8 OR LESS 06/19/17 17:30 06/20/17 13:30 Miscellaneous Information (* Miscellaneous Pharmacy Order) DURAMORPH: 0.2 MG SPI... GIVEN NEURAXIAL XX 06/19/17 17:30 06/19/17 17:36 DC Acetaminophen/ Hydrocodone Bitart (Wellington (5/325)) 1 tab Q4H PRN PO PAIN LEVEL 4-6 06/19/17 18:00 Acetaminophen/ Hydrocodone Bitart (Wellington (5/325)) 2 tab Q4H PRN PO PAIN LEVEL 7-10 06/19/17 18:00 Oxycodone/ Acetaminophen (Percocet (5/ 325)) 1 tab Q4H PRN PO PAIN LEVEL 4-6 06/19/17 18:00 Oxycodone/ Acetaminophen (Percocet (5/ 325)) 2 tab Q4H PRN PO PAIN LEVEL 7-10 06/19/17 18:00 Ibuprofen (Motrin) 600 mg Q6 PO 06/20/17 18:00 Simethicone (Mylicon) 160 mg Q8H PRN PO DISTENSION/GAS/BLOATING 06/19/17 18:00 Senna/Docusate Sodium (Senokot-S) 1 tab BID PO 06/19/17 21:00 06/20/17 08:03 Lanolin (Dqk-W-Zmerdi) 1 applic BEDSIDE MEDICATION PRN TOP BEDSIDE FOR AMBREEN TO NIPPLES 06/19/17 18:00 Diphtheria/ Tetanus/Acell Pertussis 0.5 ml 0.5 ml ONCE ONCE IM* 06/22/17 09:00 06/22/17 09:01 Oxytocin/Lactated Ringer's 500 ml @ 0 mls/hr ONCE PRN IV For Hemorrhage Management 06/19/17 18:00 Methylergonovine Maleate (Methergine) 0.2 mg ONCE PRN IM VAGINAL BLEEDING 06/19/17 18:00 Carboprost Tromethamine (Hemabate) 250 mcg ONCE PRN IM VAGINAL BLEEDING 06/19/17 18:00 Misoprostol 1000 mcg 1,000 mcg ONCE PRN RI VAGINAL BLEEDING 06/19/17 18:00 Cefazolin Sodium 50 ml @ 100 mls/hr ONCE IVPB 06/19/17 18:00 06/19/17 18:29 DC 06/19/17 18:35 Oxytocin/Lactated Ringer's 500 ml @ 125 mls/hr Q4H IV 06/19/17 17:32 06/20/17 03:46 Lactated Ringer's (Lr) 1,000 ml @ 125 mls/hr Q8H IV 06/20/17 07:30 06/20/17 15:00 06/20/17 07:54 Breast feeding the new born. SANDY ZAPIEN MD Jun 20, 2017 11:52
[2017-06-20 12:00] VITALS: BP 95/52; RESP 18
[2017-06-20 16:00] VITALS: BP 94/59; PULSE 67; RESP 18
[2017-06-20] MEDS: IBUPROFEN 600 MG TAB PO SCH (17:52)
[2017-06-20 20:05] VITALS: BP 103/66; PULSE 75; RESP 19
[2017-06-21] MEDS: IBUPROFEN 600 MG TAB PO SCH ×5 (00:11→23:30)
[2017-06-21 04:15] VITALS: BP 96/51; PULSE 76; RESP 17
[2017-06-21] MEDS: HYDROCODONE/APAP (5/325) TAB PO PRN ×3 (07:15→20:22)
[2017-06-21 07:45] VITALS: BP 107/61; PULSE 85; RESP 19
--- NOTE | 2017-06-21 10:54 | QN ---
Documentation Comment Post day 2 Afebrile Vital signs are stable Abdomen soft Incision dry Good bowel sounds, no bowel movement, fleets enema recommended JAMA SINGH MD Jun 21, 2017 10:54
[2017-06-21] MEDS ORDERED: NA PHOSPHATE/BIPHOS 133 ML ENEMA PR ONE (11:00)
[2017-06-21] MEDS: SENNA/DOCUSATE NA (8.6MG/50MG) TAB PO SCH ×2 (11:06→21:00)
[2017-06-21] MEDS ORDERED: IBUPROFEN 600 MG TAB PO ONE (12:00)
[2017-06-21 15:40] VITALS: BP 100/70; PULSE 74; RESP 19
[2017-06-21 20:22] VITALS: BP 99/55; PULSE 76; RESP 18
[2017-06-22] MEDS: IBUPROFEN 600 MG TAB PO SCH ×2 (05:36→12:00)
[2017-06-22 07:45] VITALS: BP 101/64; PULSE 73; RESP 18
[2017-06-22] MEDS: SENNA/DOCUSATE NA (8.6MG/50MG) TAB PO SCH (09:00)
[2017-06-22] MEDS ORDERED: DIPHTH/TET/ACEL PERTUSS (ADULT) 0.5 ML VIAL IM* ONE (09:00)
[2017-06-22] MEDS: HYDROCODONE/APAP (5/325) TAB PO PRN (09:01)
--- NOTE | 2017-06-22 09:43 | PD.PPDC ---
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
--- NOTE | 2017-06-22 09:47 | DS ---
Date/Time of Note Date/Time of Note DATE: 06/22/17 TIME: 09:46 Discharge Summary Admission/Discharge Info Admit Date/Time Jun 19, 2017 at 09:57 Discharge Date/Time June 22, 2017 at 10 AM Discharge Diagnosis Post repeat by tubal ligation day 3 Patient Condition: Good Procedures Repeat bilateral tubal ligation Hx of Present Illness complicated with cholestasis, history of previous , request for bilateral tubal ligation at the time of her section Hospital Course Satisfactory uneventful Home Meds Reported Medications Magnesium Oxide (Magnesium Oxide) 500 Mg Tablet, 500 MG PO, TAB 06/19/17 Ursodiol* (Actigall*) 300 Mg Cap, 300 MG PO BID, #60 CAP 06/17/17 [id number] ( 19) 1 Each Tablet, 1 TAB PO DAILY, TAB 06/17/17 Discontinued Scripts Acetaminophen* (Tylophen*) 500 Mg Capsule, 1 CAP PO Q6H Y for PAIN AND OR ELEVATED TEMP, #15 CAP Prov:JOCELYN JEFFRIES MD 11/13/16 Docusate Sodium* (Colace*) 100 Mg Capsule, 100 MG PO TID, #30 CAP Prov:MARTITA TAN PA-C 04/28/16 Follow-up Plan Post instructions given recommended to make appointment to be seen at the clinic in [address] [facility] Time spent on discharge: < 30 minutes JAMA SINGH MD Jun 22, 2017 09:47
== END 2017-06-22 11:30 | disposition home or self-care (01) | DRG 765 ==
LOC: L-D 09:57 → PP1 17:17
PROVIDERS: ADMIT Obstetrics & Gynecology; ATTEND Obstetrics & Gynecology
PROC: 0UB70ZZ Excision of Bilateral Fallopian Tubes, Open Approach (ICD-10-PCS; 2017-06-19)
PROC: 10D00Z1 Extraction of Products of Conception, Low, Open Approach (ICD-10-PCS; principal; 2017-06-19 12:30)
DX: O26.62 Liver and biliary tract disorders in childbirth (principal); K83.1 Obstruction of bile duct; O34.219 Maternal care for unspecified type scar from previous cesarean delivery; Z37.0 Single live birth; Z3A.37 37 weeks gestation of pregnancy; Z30.2 Encounter for sterilization
CPT/HCPCS: 80053; 85025; 85610; 85730; 86592; 86900; 86901; 87340; 88302; 90715; 99464; J0690; J1100; J1885; J2274; J2370; J2405; J2590; J2765; J7120; P9045

== ENCOUNTER 2017-07-12 16:06 | Emergency (ER) | payer OTHER ==
[~2017-07-12] VITALS: Ht 157.5 cm; Wt 57.6 kg
[~2017-07-12 16:06] MED LIST changes: -EPHEDrine SULFATE 50 MG/5 ML SYG ONE; -OXYTOCIN 30 UNITS/LR 500 ML BAG IV ONE; -URSO300C21 PO
[2017-07-12 16:08] VITALS: Ht 157.5 cm; Wt 57.6 kg
[2017-07-12] MEDS ORDERED: IBUPROFEN 200 MG TAB PO STA ×2 (17:53)
[2017-07-12] MEDS ORDERED: CEPH-443 PO (17:55)
[2017-07-12] MEDS ORDERED: IBUP400T22 PO (17:55)
--- NOTE | 2017-07-12 18:43 | ERD ---
ER Documentation Chief Complaint Chief Complaint Complains of wound not closing and serosanguinous drainage S/P C section HPI 31 years old female T3 admitted at 37 weeks gestation on Jun 19 2017 for . Patient had dehiscence of her wound and was seen by her clinic a week after the surgery. Patient did not have any infection at that time and was given instructions for wound care. Patient presents today for increased pain at the site of dehiscence for the past 3 days, she denies any fevers ROS All systems reviewed and are negative except as per history of present illness. Medications Home Meds Active Scripts Ibuprofen* (Ibuprofen*) 400 Mg Tablet, 400 MG PO Q6H Y for PAIN, #30 TAB Prov:JOYCE SHEFFIELD PA-C 07/12/17 Cephalexin* (Keflex*) 500 Mg Capsule, 500 MG PO QID for 10 Days, CAP Prov:JOYCE SHEFFIELD PA-C 07/12/17 Reported Medications [id number] ( 19) 1 Each Tablet, 1 TAB PO DAILY, TAB 06/17/17 Allergies Allergies: Coded Allergies: No Known Allergy (Unverified , 04/25/16) PMhx/Soc Medical and Surgical Hx: pt denies Medical Hx, pt denies Surgical Hx History of Surgery: Yes ( x2) Anesthesia Reaction: No Hx Neurological Disorder: No Hx Respiratory Disorders: No Hx Cardiac Disorders: No Hx Psychiatric Problems: No Hx Miscellaneous Medical Probl: No (para 6, 3, misscarrage 1, abortionx1) Hx Alcohol Use: No Hx Substance Use: No Hx Tobacco Use: No Physical Exam Vitals Vital Signs Date Time Temp Pulse Resp B/P Pulse Ox O2 Delivery O2 Flow Rate FiO2 07/12/17 16:08 97.9 66 20 121/80 100 Physical Exam Const: [] Head: Atraumatic Eyes: Normal Conjunctiva ENT: Normal External Ears, Nose and Mouth. Neck: Full range of motion..~ No meningismus. Resp: Clear to auscultation bilaterally Cardio: Regular rate and rhythm, no murmurs Abd: Soft, non tender, non distended. Normal bowel sounds Skin: horizontal incisional site pelvic region with 2cm dehiscence , no evidence of significant erythema or warmth Back: No midline or flank tenderness Ext: No cyanosis, or edema Neur: Awake and alert Psych: Normal Mood and Affect Results 24 hrs Current Medications Medications (Trade) Dose Ordered Sig/Black Route PRN Reason Start Time Stop Time Status Last Admin Dose Admin Ibuprofen (Motrin) 400 mg ONCE STAT PO 07/12/17 17:53 07/12/17 17:55 DC Ibuprofen (Motrin) 400 mg ONCE STAT PO 07/12/17 17:53 07/12/17 17:55 DC 07/12/17 18:23 Procedures/MDM This is a 31-year-old female presenting to the emergency department for a wound check of a site that was 3 weeks ago, patient had dehiscence of the site 2 weeks ago. On examination patient did not have any evidence of significant cellulitis, I have consulted OB who has evaluated the patient and suggested Keflex for 10 days and to follow-up with his OB. She is well-appearing, stable to be discharged home with instructions to follow-up with OB in the next couple days Departure Diagnosis: Primary Impression: Infected wound Condition: Stable Patient Instructions: Laceration, Infected Repair Referrals: JAMA SINGH MD Additional Instructions: FOLLOW UP WITH YOUR PRIMARY CARE PHYSICIAN TOMORROW.Return to this facility if you are not improving as expected. Take all medicines as directed. Return to this facility if you are not improving as expected. JOYCE SHEFFIELD PA-C Jul 12, 2017 18:43
== END 2017-07-12 18:29 | disposition home or self-care (01) ==
LOC: FTE 16:06
DX: O90.0 Disruption of cesarean delivery wound (principal)
CPT/HCPCS: Z7502; Z7610; 99283

== ENCOUNTER 2018-03-20 11:48 | Emergency (ER) | END 2018-03-20 13:41 | disposition home or self-care (01) ==

== ENCOUNTER 2018-04-02 09:36 | Emergency (ER) | END 2018-04-02 12:22 | disposition home or self-care (01) ==

== ENCOUNTER 2019-02-25 10:20 | Emergency (ER) | payer OTHER ==
[~2019-02-25] VITALS: Ht 154.9 cm; Wt 58.9 kg
[~2019-02-25 10:20] MED LIST changes: +ACET325T33 PO; +CEPH-443 PO; +DIC250 PO; +HYDR-4011 PO; +IBUP-1541 PO; +IBUP-1542 PO; +PENI500T PO; +RANI150T35 PO
[2019-02-25 10:31] VITALS: Ht 154.9 cm; Wt 58.9 kg
--- NOTE | 2019-02-25 19:32 | ERD ---
ER Documentation Chief Complaint Chief Complaint c/o right breast pain x2 days. Currently breast feeding HPI 33yo F presents with complaint of Right breast pain x 2 days. Pt is currently br east feeding x 1.5 years. She notes previous hx of mastitis years ago to the left breast which she states was similar in presentation. She has applied warm compresses to the right breast which she notes has helped alleviate some of the redness and pain. She denies abnormal discharge from the nipple, fevers, chills, N/V/D. No known medication conditions, no hx of DM or IVDA. ROS All systems reviewed and are negative except as per history of present illness. Medications Home Meds Active Scripts Dicloxacillin Sodium* (Dynapen*) 250 Mg Cap, 250 MG PO QID for 10 Days, #40 CAP Prov:JOSELYN KELLY PA-C 02/25/19 Ranitidine Hcl* (Zantac*) 150 Mg Tablet, 150 MG PO BID PRN for EPIGASTRIC PAIN, #30 TAB Prov:MATHEW DHILLON MD 04/02/18 Acetaminophen* (Tylenol*) 325 Mg Tablet, 2 TAB PO Q8 PRN for PAIN AND OR ELEVATED TEMP, #20 TAB Prov:MATHEW DHILLON MD 04/02/18 Penicillin V Potassium* (Penicillin V K*) 500 Mg Tab, 500 MG PO QID for 7 Days, TAB Prov:ALEISHA RIVERO PA-C 03/20/18 Ibuprofen* (Motrin*) 600 Mg Tab, 600 MG PO Q6, #30 TAB Prov:ALEISHA RIVERO PA-C 03/20/18 Hydrocodone/Acetaminophen (Caspian 5-325 Tablet) 1 Each Tablet, 1 TAB PO Q6H PRN for PAIN, #10 TAB Prov:ALEISHA RIVERO PA-C 03/20/18 Ibuprofen* (Ibuprofen*) 400 Mg Tablet, 400 MG PO Q6H PRN for PAIN, #30 TAB Prov:JOYCE SHEFFIELD PA-C 07/12/17 Cephalexin* (Keflex*) 500 Mg Capsule, 500 MG PO QID for 10 Days, CAP Prov:JOYCE SHEFFIELD PA-C 07/12/17 Reported Medications [id number] ( 19) 1 Each Tablet, 1 TAB PO DAILY, TAB 06/17/17 Allergies Allergies: Coded Allergies: No Known Allergy (Unverified , 04/02/18) PMhx/Soc History of Surgery: Yes ( x2, hemmorhoid surgery.) Anesthesia Reaction: No Hx Neurological Disorder: No Hx Respiratory Disorders: No Hx Cardiac Disorders: No Hx Psychiatric Problems: No Hx Miscellaneous Medical Probl: No (para 6, 3, misscarrage 1, abortionx1) Hx Alcohol Use: No Hx Substance Use: No Hx Tobacco Use: No Smoking Status: Never smoker FmHx Family History: No diabetes, No coronary disease, No other Physical Exam Vitals Vital Signs Date Temp Pulse Resp B/P (MAP) Pulse Ox O2 O2 Flow FiO2 Time Delivery Rate 02/25/19 99.2 68 20 126/78 99 10:31 (94) Physical Exam Const: No acute distress Head: Atraumatic Eyes: Normal Conjunctiva ENT: Normal External Ears, Nose and Mouth. Neck: Full range of motion. No meningismus. Breast: Erythema and warmth to the right breast between the 6 o'clock and 9 o'clock position. No fluctuance, no induration. No discharge expressible from the nipple of the affected breast. Left breast is unremarkable. Resp: Clear to auscultation bilaterally Cardio: Regular rate and rhythm, no murmurs Ext: No cyanosis, or edema Neur: Awake and alert Psych: Normal Mood and Affect Procedures/MDM MDM: This is an otherwise healthy 33yo F who presents to the ED for evaluation of right sided breast pain. Physical exam findings consistent with mastitis. I have low suspicion for allergic reaction, eczema, insect bite, fungal infection, cellulitis, MRSA, impetigo, herpes-simplex virus, burn, or abscess. No critical abnormalities were noted. VSS, afebrile. Pt stable for discharge with outpatient management and will receive Rx for Dicloxacillin. Patient's agrees with plan and expresses verbal understanding. Pt advised to f/u with PCP or [facility] within the next 1-2 days, as well as to return to the ED if symptoms worsen or persist. Departure Diagnosis: Primary Impression: Mastitis Condition: Good Patient Instructions: Mastitis Referrals: [facility] [place] [address] [place] [address] OFFICE FAX , [facility] [address] [place] [address] [address] [place], [place] [address] [place] [address] DR ZAPIEN, [facility] [address] [facility], [address] [address] DR TREVINO, [facility] [address] [facility], [place] [address] [facility] [address] [place] [address] [facility] [id number] [facility] [address] [facility], [place] [address] [address] [place], [place] [address] [facility]. [address], [place] [address] [address] LINDSAY, [facility] [address] [place], [place] [id number] JOSELYN KELLY PA-C Feb 25, 2019 19:32
== END 2019-02-25 12:47 | disposition home or self-care (01) ==
LOC: FTE 10:20
DX: N61.0 Mastitis without abscess (principal)
CPT/HCPCS: 99283

== ENCOUNTER 2019-05-15 10:31 | Emergency (ER) | payer OTHER ==
[~2019-05-15] VITALS: Ht 157.5 cm; Wt 59.2 kg
[~2019-05-15 10:31] MED LIST changes: +NAPR-985 PO; +PSEU-79 PO; +RANI-535 PO; -RANI150T35 PO
[2019-05-15 10:39] VITALS: BP 118/85; PULSE 76; RESP 17; Ht 157.5 cm; Wt 59.2 kg
== END 2019-05-15 11:17 | disposition home or self-care (01) ==
LOC: FTE 10:31
DX: J02.9 Acute pharyngitis, unspecified (principal)
CPT/HCPCS: 99282